=== PATIENT | female | born 1955 | race Caucasian/White ===

== ENCOUNTER → 2020-10-22 | Day surgery (SDC) | payer MEDICARE, OTHER ==
[~2020-10-22] VITALS: Ht 152.4 cm; Wt 59.0 kg
[~2020-10-22] MED LIST: ASPIRIN EC81 MG PO; AZITHROMYCIN 2250 MG PO; BENZONATATE100 MG PO; BLACK ELDERBER1 EACH PO; BROMPHENIR-PSE118 ML INH; BUSPAR5 MG PO; CARAFATE1 GM PO; CELECOXIB200 MG PO; FENOFIBRATE145 MG PO; FERROUS SULFAT325 MG PO; HYDROXYZINE PAM25 MG PO; IRON159 MG PO; LEVOTHYROXINE50 MCG PO; MELATONIN10 MG PO; MELOXICAM15 MG PO; OMEPRAZOLE40 MG PO; ONDANSETRON ODT8 MG PO; PRAVASTATIN SOD40 MG PO; PREDNISONE20 MG PO; QUETIAPINE FUM100 MG PO; RALOXIFENE HCL60 MG PO; SERTRALINE HCL50 MG PO; TESSALON PERLE100 MG PO; VITAMIN B-121000 MC1 PO; VITAMIN D3125 MC1 PO
== END | disposition home or self-care (01) ==
LOC: FAS 11:31
DX: K25.9 Gastric ulcer, unspecified as acute or chronic, without hemorrhage or perforation (principal); K31.7 Polyp of stomach and duodenum; K44.9 Diaphragmatic hernia without obstruction or gangrene; K31.9 Disease of stomach and duodenum, unspecified; F41.9 Anxiety disorder, unspecified; M19.90 Unspecified osteoarthritis, unspecified site; F32.9 Major depressive disorder, single episode, unspecified; K21.9 Gastro-esophageal reflux disease without esophagitis; E78.5 Hyperlipidemia, unspecified; E03.9 Hypothyroidism, unspecified; M81.0 Age-related osteoporosis without current pathological fracture; G47.30 Sleep apnea, unspecified; Z88.5 Allergy status to narcotic agent; Z79.82 Long term (current) use of aspirin; Z79.899 Other long term (current) drug therapy
CPT/HCPCS: 88305; J2704; J7120